=== PATIENT | female | born 1955 | race Caucasian/White ===

== ENCOUNTER 2018-01-18 07:50 | Inpatient (IN) | payer BC ==
--- NOTE | 2018-01-18 07:53 | ED.PDOC ---
History of Present Illness - General Chief Complaint: Cardiovascular Problem Stated Complaint: sob/chest apins Time Seen by Provider: 01/18/18 07:52 Source: patient Exam Limitations: no limitations - History of Present Illness Initial Comments: Romana Connors 62 y/o female with history of a .fib came to ER with SOB the last 3 days and had sharp pressure like pains on her chest since yesterday,no diaphoresis,no N/V.Stated had pacemaker placed in 2 years ago for her a.fib and also has CHF,Asthma,Lupus and RA.Mentioned about her moderately fast heart rate stated its not unusual for her. Has Md in [place], [place]. Timing/Duration: other - see hpi Severity: moderate Improving Factors: nothing Worsening Factors: nothing Associated Symptoms: other - see hpi Allergies/Adverse Reactions: Allergies Codeine Allergy (Verified 01/18/18 07:58) Vomitting Home Medications: Ambulatory Orders Albuterol Sulfate [Proair Hfa] 2 puff INH Q4H PRN 01/18/18 Bupropion HCl [Bupropion Hydrochloride] 75 mg PO DAILY 01/18/18 Diclofenac Sodium (Topical) [Diclofenac Sodium] 1 % TD TID PRN 01/18/18 Doxepin HCl 10 mg PO TID PRN 01/18/18 Esomeprazole Magnesium 20 mg PO DAILY 01/18/18 Fluticasone/Salmeterol 250/50 [Advair Diskus] 1 puff INH BID 01/18/18 Furosemide 20 mg PO DAILY PRN 01/18/18 Metoprolol Tartrate 50 mg PO BID 01/18/18 Pramipexole Dihydrochloride [Mirapex] 1.5 mg PO BID 01/18/18 busPIRone HCL [Buspar] 5 mg PO BID PRN 01/18/18 sulfaSALAzine TAB [Azulfidine] 500 mg PO BID 01/18/18 Review of Systems - Review of Systems Constitutional: States: no symptoms reported EENTM: States: no symptoms reported Respiratory: States: see HPI Cardiology: States: see HPI Gastrointestinal/Abdominal: States: no symptoms reported Genitourinary: States: no symptoms reported Musculoskeletal: States: no symptoms reported Skin: States: no symptoms reported Endocrine: States: no symptoms reported Hematologic/Lymphatic: States: no symptoms reported All other Systems: Reviewed and Negative, No Change from Baseline Past Medical History (General) - Patient Medical History Hx Asthma: Yes Hx Cardiac Disorders: Yes - a.fib Hx Congestive Heart Failure: Yes Hx Pacemaker: Yes Hx Hypertension: Yes Hx Other PMH: Yes - RA,LUPUS Surgical History: appendectomy, pacemaker, other - hysterectomy - Vaccination History Immunizations Up to Date: No - unknoewn - Social History Hx Tobacco Use: No Hx Alcohol Use: No Hx Substance Use: No Hx Depression: No Feels Threatened In Home Enviroment: No Hx Physical Abuse: No Hx Emotional Abuse: No - Activities of Daily Living Patient Lives Alone: No - sister Eating (Feeding) Ability: Independent Toileting Ability: Independent Family Medical History - Family History Mother Family History: No Known Living Status: Hx Cardiac Disease: Yes - a.fib-multiple family members Physical Exam - Physical Exam General Appearance: Alert, Comfortable, No apparent distress Eye Exam: bilateral normal Ears, Nose, Throat: hearing grossly normal, normal ENT inspection Neck: non-tender, full range of motion, supple, normal inspection Respiratory: chest non-tender, lungs clear, normal breath sounds Cardiovascular/Chest: normal peripheral pulses, regular rate, rhythm, no murmur Peripheral Pulses: radial,right: 2+, radial,left: 2+ Gastrointestinal/Abdominal: normal bowel sounds, non tender, soft, no organomegaly Back Exam: no CVA tenderness, no vertebral tenderness Extremity: no pedal edema, no calf tenderness Neurologic: no motor/sensory deficits, alert, oriented x 3 Progress - Progress Progress: 01/18/18 11:37 Vital Signs - 8 hr 01/18/18 01/18/18 01/18/18 07:59 08:38 09:31 Temperature 99.1 F Pulse Rate 112 H Pulse Rate [ 110 H 124 H Apical] Respiratory 26 H 22 20 Rate Blood Pressure 132/52 [Right Arm] O2 Sat by Pulse 93 L 89 L Oximetry 01/18/18 01/18/18 01/18/18 10:18 10:22 11:13 Temperature Pulse Rate Pulse Rate [ 122 H 93 H 105 H Apical] Respiratory 20 Rate Blood Pressure 124/74 96/80 103/64 [Right Arm] O2 Sat by Pulse 89 L 89 L 95 Oximetry - Results/Orders Results/Orders: 01/18/18 08:12 B-TYPE NATRIURETIC PEPTIDE/BNP Stat CARDIAC PANEL,ER Stat HEPATIC FUNCTION PANEL Stat Chest,1 View [RAD] Stat URINALYSIS Stat 01/18/18 09:16 SVN/Updraft Therapy .ONCE 01/18/18 09:30 EKG STAT 01/19/18 09:00 [facility] Daily Laboratory Results - last 24 hr 01/18/18 01/18/18 01/18/18 08:30 08:43 09:58 WBC 9.7 RBC 4.70 Hgb 13.5 Hct 40.4 MCV 86.0 MCH 28.8 MCHC 33.5 RDW 16.6 H Plt Count 238 MPV 8.8 Absolute Neuts (auto) 7.60 H Absolute Lymphs (auto) 1.20 Absolute Monos (auto) 0.80 Absolute Eos (auto) 0.00 Absolute Basos (auto) 0.10 Neutrophils % 78.4 H Lymphocytes % 11.8 L Monocytes % 8.6 Eosinophils % 0.4 L Basophils % 0.8 PT 13.4 H INR 1.160 PTT (SP) 34.3 Sodium 140 Potassium 3.3 L Chloride 105 Carbon Dioxide 25 Anion Gap 13.3 BUN 13 Creatinine 0.77 BUN/Creatinine Ratio 16.9 Random Glucose 145 H Serum Osmolality 282.1 Calcium 8.8 Magnesium 1.4 L Total Bilirubin 0.8 Direct Bilirubin 0.2 Indirect Bilirubin 0.6 AST 41 ALT 68 H Alkaline Phosphatase 66 Creatine Kinase 32 CK-MB (CK-2) 1.2 CK-MB (CK-2) % Not Reportable Troponin I < 0.02 < 0.02 B-Natriuretic Peptide 1200.0 H* Serum Total Protein 6.7 Albumin 3.4 Urine Color Yellow Urine Appearance Clear Urine pH 6.0 Ur Specific [place] 1.015 Urine Protein Negative Urine Glucose (UA) Negative Urine Ketones Negative Urine Blood Trace-intact H Urine Nitrite Negative Urine Bilirubin Negative Urine Urobilinogen 0.2 Ur Leukocyte Esterase Negative Urine RBC 0-1 Urine WBC 1-3 Ur Epithelial Cells 3-5 Urine Bacteria Rare - EKG/XRAY/CT EKG: Atrial, Fibrillation, nonspecific ST T wave Chg Comments: HR-112 XRAY: chest - interstitial densities more on the left ,mild cardiomegaly,/ radiologist Departure - Departure Clinical Impression: Chest tightness or pressure, Atrial fibrillation with controlled ventricular response CHF, acute on chronic Qualifiers: Congestive heart failure type: unspecified congestive heart failure type Qualified Code(s): I50.9 - Heart failure, unspecified Dyspnea Qualifiers: Dyspnea type: unspecified Qualified Code(s): R06.00 - Dyspnea, unspecified Time of Disposition: 11:39 Disposition: Admit Patient Condition: Fair Departure Forms: Patient Portal Self Enrollment Home Medications: Ambulatory Orders Albuterol Sulfate [Proair Hfa] 2 puff INH Q4H PRN 01/18/18 Bupropion HCl [Bupropion Hydrochloride] 75 mg PO DAILY 01/18/18 Diclofenac Sodium (Topical) [Diclofenac Sodium] 1 % TD TID PRN 01/18/18 Doxepin HCl 10 mg PO TID PRN 01/18/18 Esomeprazole Magnesium 20 mg PO DAILY 01/18/18 Fluticasone/Salmeterol 250/50 [Advair Diskus] 1 puff INH BID 01/18/18 Furosemide 20 mg PO DAILY PRN 01/18/18 Metoprolol Tartrate 50 mg PO BID 01/18/18 Pramipexole Dihydrochloride [Mirapex] 1.5 mg PO BID 01/18/18 busPIRone HCL [Buspar] 5 mg PO BID PRN 01/18/18 sulfaSALAzine TAB [Azulfidine] 500 mg PO BID 01/18/18 Decision To Admit - Decistion To Admit Decision to Admit Reason: Admit from ER Decision to Admit Date: 01/18/18 Decision to Admit Time: 11:40
[2018-01-18] MEDS ORDERED: NITROGLYCERIN 0.4 MG 25 EA TAB SL ONE (08:13)
[2018-01-18] MEDS ORDERED: BUMETANIDE 0.25 MG/ML VIAL IV ONE (08:13)
[2018-01-18] MEDS ORDERED: ONDANSETRON INJ 4 MG/2 ML VIAL IV ONE ×2 (08:27→08:28)
[2018-01-18] MEDS ORDERED: ONDANSETRON INJ 4 MG/2 ML VIAL ONE (08:27)
--- NOTE | 2018-01-18 08:57 | RAD ---
EXAM DESCRIPTION: Chest,1 View CLINICAL HISTORY: chest pressure, SOB COMPARISON: None. TECHNIQUE: AP portable taken at 842 hours, upright position. FINDINGS: Interstitial densities bilaterally and also in the right upper lobe. Minimal air trapping. Perihilar peribronchial wall cuffing. Mild cardiomegaly but pulmonary vascularity is not increased. Pacemaker power pack left chest and pacing leads in the right atrium and right ventricle. IMPRESSION: Interstitial densities could represent bronchitis or and/or pulmonary edema but asymmetric involvement of the upper lobes more on the left. Pulmonary vascularity is not increased. No there is mild cardiomegaly. Inflammatory or infectious etiology more likely than pulmonary edema. Electronically signed by: Joshua Chino MD 01/18/2018 8:56 AM CDT
[2018-01-18] MEDS ORDERED: MAGNESIUM SULFATE PREMIX 2GM 2 GM in PREMIX BAG 1 BAG IVPB ONE (09:13)
[2018-01-18] MEDS ORDERED: POTASSIUM CHLORIDE 20 MEQ TAB PO ONE ×2 (09:13→12:57)
[2018-01-18] MEDS ORDERED: methylPREDNISolone SODIUM SUC 125 MG/2 ML VIAL IV ONE (09:15)
[2018-01-18] MEDS ORDERED: IPRATROPIUM/ALBUTEROL 3 ML VIAL NEB ONE (09:16)
[2018-01-18] MEDS ORDERED: MAGNESIUM SULFATE PREMIX 2GM 50 ML IVPB ONE (10:00)
--- NOTE | 2018-01-18 11:52 | HP ---
SUPERVISING PHYSICIAN: William Valdez MD CHIEF COMPLAINT: Shortness of breath. HISTORY OF PRESENT ILLNESS: This is a 62-year-old female patient with a history of atrial fibrillation who came into the Emergency Room with shortness of breath that started last Wednesday. She is from [place] and was visiting family here in [place]. She had a sharp pressure-like pain in her chest since yesterday. There is no diaphoresis, no nausea and vomiting. She has a history of pacemaker insertion for atrial fibrillation about 2 to 3 years ago and was diagnosed with congestive heart failure approximately one month ago and was in ICU in [place], [place]. She also has a history of asthma, chronic obstructive pulmonary disease, rheumatoid arthritis. When she presented to the Emergency Room, she had a heart rate in the low 100s. It did go as high as 124. Her workup included lab with a sodium 140, potassium 3.3, chloride 105, carbon dioxide 25, BUN 13, creatinine 0.77, glucose 145, magnesium 1.4. ALT 68. Cardiac enzymes were negative. BNP was 1200. Urinalysis was basically within normal limits with the exception of a trace of urine blood. Chest x-ray showed interstitial densities that could represent bronchitis and/or pulmonary edema with asymmetric involvement of the upper lobes, more on the left. She was given some magnesium and some Diltiazem. Her heart rate came down to around 100. Breathing treatments were also administered. She was given some Solu-Medrol IV and some nitroglycerin. I was called for admission for exacerbation of congestive heart failure. PAST MEDICAL HISTORY: 1. Lupus. 2. Chronic obstructive pulmonary disease. 3. Asthma. 4. Depression and anxiety. 5. Coronary artery disease. 6. Congestive heart failure of unknown etiology, diagnosed approximately 3 to 4 weeks ago. 7. Hypertension. 8. Restless leg syndrome. 9. Remote history of migraines. 10. Rheumatoid arthritis. 11. Atrial fibrillation with pacemaker insertion. PAST SURGICAL HISTORY: 1. Hysterectomy. 2. x2. 3. Pacemaker insertion. 4. Appendectomy. OUTPATIENT MEDICATIONS: 1. Albuterol. 2. Diclofenac topical. 3. Nexium. 4. Furosemide. 5. Bupropion. 6. BuSpar. 7. Doxepin. 8. Advair 250/50. 9. Metoprolol tartrate. 10. Mirapex. 11. Azulfidine. ALLERGIES: No known drug allergies except codeine does cause some nausea. SOCIAL HISTORY: She lives in [place], [place], which is outside [place]. She has two children. She is retired. She has a 40 pack year history of smoking, but she quit approximately 4 months ago. She denies any ETOH or illicit drug use. REVIEW OF SYSTEMS: GENERAL: Negative for fever, fatigue or malaise. HEENT: Negative for sinus symptoms, ear pain, vision changes or sore throat. RESPIRATORY: Positive for shortness of breath with some coughing and wheezing. CARDIAC: Positive for chest pain and history of congestive heart failure and palpitations. GASTROINTESTINAL: Negative for nausea, vomiting, diarrhea, constipation. GENITOURINARY: Negative for hematuria, dysuria or polyuria. MUSCULOSKELETAL: Negative for arthralgias, myalgias or back pain. SKIN: Negative for lesions or rashes. HEMATOLOGIC: Negative for bruising or abnormal bleeding. PHYSICAL EXAMINATION: VITAL SIGNS: Heart rate 94. Blood pressure 92/62. Respiratory rate 24. O2 saturation 89 on room air. She comes up to 91% on 2 liters nasal cannula. GENERAL: This is a this a 62-year-old female patient who is lying in her hospital bed. She is in no acute distress. HEENT: Normocephalic, atraumatic. Pupils are equal and reactive. Oropharynx is clear. NECK: Supple without mass. No discernible jugular venous distention. RESPIRATORY: Essentially clear to auscultation bilaterally but there are a few scattered crackles in the bases. CHEST: There is equal rise and fall of the chest with inspiration and expiration. She is slightly tachypneic. CARDIOVASCULAR: Regular rate and rhythm. At times, she is slightly tachycardic. EXTREMITIES: +1 pedal edema bilaterally with bilateral palpable pulses at +2. There is no cyanosis or clubbing. NEUROLOGIC: Awake, alert and oriented times three. Cranial nerves II-XII are grossly intact. LABORATORY: Labs and films are as per history of present illness. IMPRESSION: 1. Exacerbation of congestive heart failure of unknown etiology. The patient has recently been hospitalized for congestive heart failure as a new diagnosis. She is on a beta clifford, but has not been taking her EB inhibitor. 2. Exacerbation of chronic obstructive pulmonary disease. 3. Electrolyte imbalance include hypokalemia and hypomagnesemia. 4. Tachycardia on admission with a history of atrial fibrillation and pacemaker insertion. 5. Hypertension. 6. Restless leg syndrome. 7. Depression and anxiety. 8. Lupus. PLAN: We will admit the patient to the hospital. I have initiated congestive heart failure guidelines. She will be restarted on a very low dose of lisinopril and continue on her metoprolol. I have also given her some IV Lasix. We will monitor her labs in the morning. I have requested her echocardiogram from [facility] in [place]. She will also have breathing treatments. I will also do serial cardiac enzymes. She will have a proton pump inhibitor for ulcer prophylaxis, Lovenox for DVT prophylaxis. Mostly likely, she will need two or three days in the hospital with adjustment of her medication and close followup with Dr. Bunn, her primary care physician in [place]. We will monitor the patient closely and follow as needed. Dr. Valdez is the collaborating physician and available for consultation. #[id number] [facility]
[2018-01-18] MEDS ORDERED: NITROGLYCERIN 0.4 MG 25 EA TAB SL PRN (12:41)
[2018-01-18] MEDS ORDERED: ONDANSETRON INJ 4 MG/2 ML VIAL IV PRN (12:41)
[2018-01-18] MEDS ORDERED: DOXEPIN HCL 10 MG PO PRN (13:14)
[2018-01-18] MEDS ORDERED: POTASSIUM CHLORIDE 20 MEQ TAB ONE (15:52)
[2018-01-18] MEDS: methylPREDNISolone SODIUM SUC 40 MG/ML VIAL IV SCH ×2 (16:16→21:57)
[2018-01-18] MEDS: IV SET AND CAP CHANGE INJ INJ SCH (16:18)
[2018-01-18] MEDS: SODIUM CHLORIDE 0.9% (FLUSH) 10 ML SYG IV SCH ×2 (16:19→20:45)
[2018-01-18] MEDS: ALBUTEROL SULFATE 2.5 MG/3 ML VIAL NEB PRN (16:50)
[2018-01-18] MEDS ORDERED: FUROSEMIDE 40 MG TAB PO SCH (17:00)
[2018-01-18] MEDS: ACETAMINOPHEN 325 MG TAB PO PRN (19:38)
[2018-01-18] MEDS: ALBUTEROL SULFATE 2.5 MG/3 ML VIAL NEB SCH (19:54)
[2018-01-18] MEDS ORDERED: PANTOPRAZOLE SODIUM IV 40 MG VIAL ONE (19:59)
[2018-01-18] MEDS: FLUTICASONE/SALMETEROL 250/50 14 PUFF/17 GM INH INH SCH (20:09)
[2018-01-18] MEDS: PRAMIPEXOLE 0.25 MG TAB PO SCH (20:43)
[2018-01-18] MEDS: sulfaSALAzine TAB 500 MG TAB PO SCH (20:44)
[2018-01-18] MEDS: busPIRone HCL 5 MG TAB PO SCH (20:44)
[2018-01-18] MEDS: METOPROLOL TARTRATE 50 MG TAB PO SCH (20:44)
[2018-01-18] MEDS ORDERED: ENOXAPARIN SODIUM 40 MG/0.4 ML SYG SUBCU SCH (21:00)
[2018-01-18] MEDS ORDERED: METOPROLOL TARTRATE 25 MG TAB PO ONE (21:02)
[2018-01-18] MEDS: ALPRAZolam 0.25 MG TAB PO PRN (22:20)
[2018-01-19] MEDS: ALBUTEROL SULFATE 2.5 MG/3 ML VIAL NEB SCH ×3 (00:29→07:55)
[2018-01-19] MEDS: SODIUM CHLORIDE 0.9% (FLUSH) 10 ML SYG IV PRN ×2 (05:50→14:06)
[2018-01-19] MEDS: methylPREDNISolone SODIUM SUC 40 MG/ML VIAL IV SCH ×3 (05:50→21:41)
[2018-01-19] MEDS ORDERED: PANTOPRAZOLE SODIUM IV 40 MG VIAL IV SCH (06:30)
--- NOTE | 2018-01-19 07:31 | RAD ---
2 view chest INDICATION: CHF COMPARISON: January 18 IMPRESSION: Dual-lead cardiac pacemaker with lead tips over the right atrium and ventricle. Heart size upper limits normal. Minimal interstitial thickening/edema in the mid and lower lungs. No major cephalization of flow. No alveolar edema. No large pleural effusion or pneumothorax. Slight improvement overall. lateral film shows mild wedging of a lower thoracic vertebral body age-indeterminate. Electronically signed by: Jaleel Mace MD 01/19/2018 7:29 AM CDT
[2018-01-19] MEDS: FLUTICASONE/SALMETEROL 250/50 14 PUFF/17 GM INH INH SCH ×2 (07:55→20:01)
[2018-01-19] MEDS ORDERED: METOPROLOL TARTRATE 50 MG TAB ONE ×2 (08:37→20:42)
[2018-01-19] MEDS: POTASSIUM CHLORIDE 20 MEQ TAB PO SCH ×2 (09:56→10:05)
[2018-01-19] MEDS: FUROSEMIDE INJ 20 MG/2 ML VIAL IV SCH ×2 (09:57→16:17)
[2018-01-19] MEDS: METOPROLOL TARTRATE 50 MG TAB PO SCH ×2 (09:57→20:45)
[2018-01-19] MEDS: sulfaSALAzine TAB 500 MG TAB PO SCH ×2 (09:57→20:44)
[2018-01-19] MEDS: BUPROPION HCL 75 MG PO SCH (09:57)
[2018-01-19] MEDS: busPIRone HCL 5 MG TAB PO SCH ×2 (09:57→20:45)
[2018-01-19] MEDS: SODIUM CHLORIDE 0.9% (FLUSH) 10 ML SYG IV SCH ×2 (09:58→20:50)
[2018-01-19] MEDS: PRAMIPEXOLE 0.25 MG TAB PO SCH ×2 (09:58→20:45)
[2018-01-19] MEDS: LISINOPRIL 5 MG TAB PO SCH (10:00)
[2018-01-19] MEDS ORDERED: SODIUM CHL 0.9% 50ML MIN-BAG+ 50 ML IVPB ONE ×2 (10:21→21:56)
[2018-01-19] MEDS ORDERED: cefTRIAXone SODIUM 1 GM VIAL ONE ×2 (10:21→21:56)
[2018-01-19] MEDS: AZITHROMYCIN 250 MG TAB PO SCH (10:22)
[2018-01-19] MEDS: cefTRIAXone SODIUM 1 GM in SODIUM CHL 0.9% 50ML MIN-BAG+ 50 ML IVPB SCH ×2 (10:22→22:46)
--- NOTE | 2018-01-19 11:58 | CT ---
EXAM DESCRIPTION: CTA Chest CLINICAL HISTORY: 62 years Female, SOB; CP ; Tachy COMPARISON: Radiographs of the chest performed on the same day. TECHNIQUE: Contiguous thin section axial images through the chest were obtained after the administration of intravenous contrast. Sagittal and coronal reconstructions were reviewed. MIP reconstructions were performed as well. FINDINGS: The visualized thyroid gland and supraclavicular region appear normal. No evidence of abnormally enlarged mediastinal, hilar or axillary lymphadenopathy. Trachea is midline and the central tracheobronchial tree is patent. Severe emphysematous changes are identified in the bilateral upper lobes. Airspace opacities in the bilateral lower lobes could represent atelectasis probably from poor inspiratory effort. No nodules or masses are visualized. No evidence of pleural effusions. The heart is enlarged in size especially the left atrium and left ventricle. The visualized aorta is nonaneurysmal with no significant atherosclerosis. The superior vena cava is normal in size and caliber.No significant coronary artery atherosclerosis. No evidence of acute or chronic pulmonary embolism. The esophagus appears normal throughout its visualized length. Incidental note is made of gallstones. There is mild surrounding inflammatory stranding, most likely consistent with acute cholecystitis. Small hiatal hernia is noted. No other abnormality is noted in the imaged upper abdomen. The visualized bones appear grossly unremarkable. IMPRESSION: 1. No evidence of acute or chronic pulmonary embolism. 2. Cholelithiasis with inflammatory stranding surrounding the gallbladder most likely consistent with acute cholecystitis. Findings were discussed with nurse practitioner Mr. Chou on 01/19/2018 at 12:00 PM. This exam was performed according to our departmental dose-optimization program, which includes automated exposure control, adjustment of the mA and/or kV according to patient size and/or use of iterative reconstruction technique. Electronically signed by: Shari Srivastava MD 01/19/2018 11:57 AM CDT
[2018-01-19] MEDS: ALBUTEROL SULFATE 2.5 MG/3 ML VIAL NEB PRN (12:00)
[2018-01-19] MEDS: APIXABAN 2.5 MG TAB PO SCH ×2 (12:25→20:45)
[2018-01-19] MEDS: NON-FORMULARY MEDICATION 1 EA MIS (Hydroxychloroquine Sulfate [Plaquenil] 200 MG) PO SCH ×2 (12:26→20:49)
[2018-01-19] MEDS: FLUoxetine HCL 20 MG CAP PO SCH (12:26)
[2018-01-19] MEDS: ESTRADIOL TAB 1 MG PO SCH (12:26)
[2018-01-19] MEDS ORDERED: SODIUM CHLORIDE 0.9% 500ML 500 ML IVS SCH (14:00)
--- NOTE | 2018-01-19 15:28 | US ---
EXAM DESCRIPTION: Abdomen,Limited CLINICAL HISTORY: Cholecystitis on CTA of chest COMPARISON: None Available. TECHNIQUE: Right upper quadrant ultrasound FINDINGS: Pancreas: Visualized portions of the pancreas are unremarkable. Bowel gas obscures some areas. Aorta/inferior vena cava: No aortic aneurysm. Normal inferior vena cava. Liver: The liver is homogeneous in texture with normal echogenicity of the hepatic parenchyma. No focal liver lesion or intrahepatic bile duct dilatation. No liver surface irregularity. Normal appearance of the portal vein and hepatic veins. Gallbladder: Positive shadowing stone in the gallbladder is seen measuring 9 mm. The gallbladder is not distended although the wall thickness is prominent. Gallbladder wall thickness measures 3.4 mm. This may be postprandial state. Sonographic Sargent sign was reported as negative. Common bile duct: Normal caliber measuring 6.5 mm. Right kidney: Renal length is 9.8 cm. Normal cortical echogenicity. Cortical thickness is normal. No hydronephrosis is seen. No renal mass or shadowing calculus. IMPRESSION: Gallstone in contracted gallbladder. See above. Electronically signed by: Nakul Patel MD 01/19/2018 3:26 PM CDT
[2018-01-19] MEDS: LEVALBUTEROL NEBS 1.25 MG/3 ML VIAL NEB SCH (16:35)
--- NOTE | 2018-01-19 17:11 | CONS ---
DATE OF CONSULTATION: 01/19/18 HISTORY OF PRESENT ILLNESS: The patient is a 62 year-old female who was admitted through the Emergency Room for what was thought to be an exacerbation of congestive heart failure. She was noted to have some abdominal pain. A CTA of the chest to rule out pulmonary embolism due to the patient's being off her Eliquis for atrial fibrillation was suspicious for acute cholecystitis and an ultrasound of the gallbladder revealed thickened gallbladder wall and gallstones. I have been asked to help with treatment and further workup. PAST MEDICAL HISTORY: 1. Lupus. 2. Chronic obstructive pulmonary disease. 3. Asthma. 4. Depression. 5. Coronary artery disease. 6. Congestive heart failure. 7. Hypertension. 8. Restless leg. 9. Migraines. 10. Rheumatoid arthritis. 11. Atrial fibrillation. 12. Status post pacemaker placement. PAST SURGICAL HISTORY: 1. Hysterectomy. 2. section. 3. Appendectomy. CURRENT MEDICATIONS: 1. Albuterol. 2. Nexium. 3. Furosemide. 4. Bupropion. 5. BuSpar. 6. Doxepin. 7. Advair. 8. Metoprolol. 9. Mirapex. 10. Azulfidine. 11. Eliquis. ALLERGIES: NO KNOWN DRUG ALLERGIES. FAMILY HISTORY: Noncontributory. SOCIAL HISTORY: The patient is retired. Lives in [place], visiting family here. No history of alcohol or drug use. She quit after a 40 pack year history of tobacco abuse, quit several months ago. REVIEW OF SYSTEMS: There is no history of hepatitis or jaundice. No history of nausea, vomiting, change in her bowel habits, blood per rectum or melenic stools. PHYSICAL EXAMINATION: VITAL SIGNS: Currently afebrile and normotensive. GENERAL: The patient is awake, alert and cooperative. She is in no acute distress. HEENT: Reveals the sclera to be nonicteric. Mucous membranes are moist. CHEST: With equal breath sounds bilaterally. HEART: Regular rhythm. ABDOMEN: Soft. There is tenderness in the epigastrium and right upper quadrant without guarding or mass. PELVIC AND RECTAL: Examination are deferred. EXTREMITIES: Without clubbing, cyanosis or edema. LABORATORY: White count 8,400 this morning with 88% neutrophils, 228,000 platelets. Hemoglobin 12. Chemistries: Liver functions were within normal limits on admission except ALT was slightly elevated at 68, potassium 3.3, creatinine 0.77. Urine has 1 to 3 white cells, negative leukocyte esterase, rare bacteria. Clear chest x-ray. CTA of the chest and abdominal ultrasound results are discussed. IMPRESSION: 1. Right upper quadrant abdominal pain. 2. Cholelithiasis rule out cholecystitis. 3. Congestive heart failure. 4. Atrial fibrillation. 5. Lupus. 6. Pacemaker. PLAN: Continue with bowel rest except for ice chips. Recheck lab in the morning. Continue IV antibiotics. #[id number] [facility]
[2018-01-19] MEDS: KCL 20MEQ/D5 1/2NS 1,000 ML IVS PRN (17:56)
[2018-01-19] MEDS: ACETAMINOPHEN 325 MG TAB PO PRN (20:46)
[2018-01-19] MEDS: TEMAZEPAM 15 MG CAP PO PRN (21:42)
[2018-01-20] MEDS: LEVALBUTEROL NEBS 1.25 MG/3 ML VIAL NEB SCH ×4 (00:09→23:56)
[2018-01-20] MEDS: KCL 20MEQ/D5 1/2NS 1,000 ML IVS PRN (06:16)
[2018-01-20] MEDS: methylPREDNISolone SODIUM SUC 40 MG/ML VIAL IV SCH (06:17)
[2018-01-20] MEDS: PANTOPRAZOLE SODIUM TAB 40 MG PO SCH (06:18)
--- NOTE | 2018-01-20 07:26 | RAD ---
EXAM DESCRIPTION: Chest,2 Views CLINICAL HISTORY: COPD; CHF exacerbation COMPARISON: January 19, 2018 TECHNIQUE: PA/lateral FINDINGS: Follow-up examination of the chest shows patchy stranding with mixed interstitial and patchy alveolar changes in the left midlung field and the right mid to lower lung field medially and infrahilar distribution. Scarring or basilar bronchopneumonia is suspected. Heart size is upper normal with calcified tortuous aorta and stable position of permanent pacer with sequential leads. No significant pleural effusions noted. Very little change in the appearance of the chest. IMPRESSION: Persistent stranding in both mid and lower lung dawson with patchy mixed interstitial and alveolar changes suggesting bronchopneumonia. Upper normal heart and vascularity. Electronically signed by: William Arreola MD 01/20/2018 7:24 AM CDT
[2018-01-20] MEDS: FLUTICASONE/SALMETEROL 250/50 14 PUFF/17 GM INH INH SCH ×2 (08:05→20:20)
[2018-01-20] MEDS: BUPROPION HCL 75 MG PO SCH (09:31)
[2018-01-20] MEDS: NON-FORMULARY MEDICATION 1 EA MIS (Hydroxychloroquine Sulfate [Plaquenil] 200 MG) PO SCH ×2 (09:33→21:03)
[2018-01-20] MEDS ORDERED: metroNIDAZOLE IV PREMIX 500MG 100 ML IVPB ONE ×3 (09:35→20:44)
[2018-01-20] MEDS ORDERED: METOPROLOL TARTRATE 50 MG TAB ONE ×2 (09:35→21:00)
[2018-01-20] MEDS: metroNIDAZOLE IV PREMIX 500MG 500 MG in PREMIX BAG 1 BAG IVPB SCH ×2 (09:43→17:50)
[2018-01-20] MEDS: busPIRone HCL 5 MG TAB PO SCH ×2 (09:45→20:49)
[2018-01-20] MEDS: ESTRADIOL TAB 1 MG PO SCH (09:45)
[2018-01-20] MEDS: FLUoxetine HCL 20 MG CAP PO SCH (09:45)
[2018-01-20] MEDS: sulfaSALAzine TAB 500 MG TAB PO SCH ×2 (09:45→20:48)
[2018-01-20] MEDS: APIXABAN 2.5 MG TAB PO SCH (09:45)
[2018-01-20] MEDS: LISINOPRIL 5 MG TAB PO SCH (09:46)
[2018-01-20] MEDS: METOPROLOL TARTRATE 50 MG TAB PO SCH ×2 (09:46→21:03)
[2018-01-20] MEDS ORDERED: FUROSEMIDE INJ 20 MG/2 ML VIAL ONE (09:51)
[2018-01-20] MEDS: PRAMIPEXOLE 0.25 MG TAB PO SCH ×2 (09:54→20:49)
[2018-01-20] MEDS: SODIUM CHLORIDE 0.9% (FLUSH) 10 ML SYG IV SCH ×2 (09:55→21:05)
[2018-01-20] MEDS: FUROSEMIDE INJ 20 MG/2 ML VIAL IV SCH (09:57)
--- NOTE | 2018-01-20 10:22 | PN ---
SUPERVISING PHYSICIAN: William Valdez MD DATE: 01/19/18 SUBJECTIVE: The patient is resting comfortably. She notes she is not having any significant discomfort although she had some mild discomfort she notes on palpation at times to her right upper quadrant. She has had no nausea, vomiting or diarrhea. She does remain afebrile. OBJECTIVE: VITAL SIGNS: Temperature 97.2. Pulse 108. Blood pressure 106/68. Respirations 16. Saturation 95% on room air. I&Os show positive balance of 280 with 1080 in, 800 out. Weight 79.4 kg. CHEST: Lungs clear to auscultation bilaterally. HEART: Slightly irregular rate and rhythm. ABDOMEN: Obese, but soft with some tenderness on deep palpation of the right upper quadrant. No rebound tenderness or guarding. EXTREMITIES: No cyanosis, clubbing or edema. NEUROLOGIC: Alert and oriented times three. LABORATORY: White count 8,400, hemoglobin 12.9, hematocrit 38.1, platelet count 228,000. Differential does show a left shift. Chemistries show magnesium 1.8, hemoglobin A1c 6.7. Troponin x4 sets were less than 0.02. EKG shows atrial fibrillation with a controlled rate. RADIOLOGY: Chest x-ray this morning per radiologic interpretation showed no alveolar edema, no large pleural effusion, pneumothorax. There is slight improvement overall with lateral films showing mild wedge of lower thoracic vertebral body, age indeterminate. There is mild interstitial thickening and edema in the mid and lower lungs. This was followed up with CT of the chest and thorax and per radiologic interpretation showed no evidence of acute or chronic pulmonary embolism. There was note of cholelithiasis with inflammatory stranding surrounding the gallbladder most likely consistent with acute cholecystitis. This was followed up with abdominal ultrasound focused on the gallbladder with per radiologic interpretation noting gallstones and contracted gallbladder measuring 9 mm with gallbladder not distended although the wall thickness was prominent and gallbladder wall thickness was measuring 3.4 mm. Sonographic Sargent's sign was reported as negative. Common bile duct was of normal caliber measuring 6.5 mm. ASSESSMENT: 1. Exacerbation of congestive heart failure of uncertain etiology, likely a diastolic/ systolic combination with diagnosis being new with the patient on a beta clifford and current echocardiogram showing an ejection fraction of 30% with the patient not previously on an EB inhibitor. 2. Right upper abdominal pain with findings on CTA of the chest and ultrasound of the abdomen consistent with cholelithiasis with concerns for cholecystitis. 3. Exacerbation of chronic obstructive pulmonary disease with acute bronchitis. 4. Electrolyte imbalance including hypokalemia and hypomagnesemia, improving with replacement. 5. History of atrial fibrillation with a controlled ventricular rate and pacemaker insertion with the patient previously on Eliquis and a beta clifford for rate control. 6. Hypertension, stable. 7. Restless leg syndrome. 8. Depression and anxiety. 9. Lupus. PLAN: Given the patient has an exacerbation of chronic obstructive pulmonary disease and a cough, we will go ahead and start her on treatment with antibiotics since she does have a left shift to include azithromycin and Rocephin. I did a consultation with Dr. Chow who has seen the patient is currently working the patient up for questionable acute cholecystitis, although given her past medical history and current congestive heart failure exacerbation along with her atrial fibrillation and poor medical compliance, she is not a great candidate for surgery at this level of hospital. We will make her NPO tonight, repeat labs in the morning and will address those findings with Dr. Chow and discuss his plan of care at that point which will more likely be to discharge the patient to continue with management in the outpatient setting in [place] hometown with her primary care physician. She will continue on lisinopril. I have restarted her beta clifford with metoprolol which she has currently not been taking consistently as well as she notes she has not taken her Eliquis for well over 4 [address] a [address] of the chest given those findings and there were no signs of pulmonary embolism and no consolidation processes noted, but there was a finding of cholelithiasis with suggestion of cholecystitis. She will remain on antibiotics since talking with Dr. Chow as well as she remains on steroids of Solu-Medrol 40 mg b.i.d. and aggressive pulmonary hygiene along with q.i.d. breathing treatments actually changing her to Xopenex nebulizers to prevent any exacerbation of atrial fibrillation with rapid ventricular response. We will start her on some IV fluids. At this point, I think she is a little bit dry intravascularly and we will do D5 half normal saline with 20 of potassium at 80 an hour as she remains NPO. She can have ice chips. We will hold her Lasix and reassess labs in the morning. Until clinically stable and able to be discharged to continue with outpatient management, we will continue to monitor the patient closely and treat appropriately. #[id number] [facility]
[2018-01-20] MEDS ORDERED: cefTRIAXone SODIUM 1 GM VIAL ONE ×2 (10:45→20:44)
[2018-01-20] MEDS ORDERED: SODIUM CHL 0.9% 50ML MIN-BAG+ 50 ML IVPB ONE ×2 (10:45→20:43)
[2018-01-20] MEDS: cefTRIAXone SODIUM 1 GM in SODIUM CHL 0.9% 50ML MIN-BAG+ 50 ML IVPB SCH ×2 (10:51→22:40)
[2018-01-20] MEDS: AZITHROMYCIN 250 MG TAB PO SCH (10:51)
--- NOTE | 2018-01-20 12:03 | PCM.CORE ---
Physician DVT/VTE - Prophylaxis Currently: Patient already on anticoagulation therapy - derek - Nurse DVT Assessment & Total Each Risk Factor Represents 3 Points: Medical PT with Hx of IL, CHF, Severe infection/sepsis Each Risk Factor Represents 2 Points: Age 60-74 Each Risk Factor is 1 Point: Serious Lung disease (pnemonia <1month, COPD, emphysema,etc) DVT Assessment Score: 6 - 5 or more Very High Risk Treatments: Early Ambulation *, Sequential Compression Device Pharmacological: Enoxaparin 40mg SQ Daily
[2018-01-20] MEDS: methylPREDNISolone SODIUM SUC 125 MG/2 ML VIAL IV SCH ×3 (12:04→18:00)
[2018-01-20] MEDS: ALBUTEROL SULFATE 2.5 MG/3 ML VIAL NEB PRN (12:49)
[2018-01-20] MEDS ORDERED: METOPROLOL TARTRATE 25 MG TAB ONE (20:43)
[2018-01-20] MEDS: ACETAMINOPHEN 325 MG TAB PO PRN (21:02)
[2018-01-20] MEDS: TEMAZEPAM 15 MG CAP PO PRN (21:02)
--- NOTE | 2018-01-20 22:40 | PN ---
DATE: 01/20/18 SUPERVISING PHYSICIAN: William Valdez M.D. SUBJECTIVE: The patient notes that she has had a little bit increase in shortness of breath this morning. She denies any chest pains. She still continues to have some mild right upper quadrant pain more so on palpation. She has had no nausea or vomiting or diarrhea. She has remained afebrile. OBJECTIVE: VITAL SIGNS: Temperature 97.8, pulse 101, blood pressure 102/65, respirations 20, satting 93% on 2.5 liters nasal cannula at rest. I's and O's show a positive balance of 237 with 21.87 in, 1950 out. Weight is 79.5 kg. CHEST: Lung sounds are diminished throughout with just very faint inspiratory and expiratory wheezing. No rales or rhonchi are noted. HEART: Slightly irregular rate and rhythm but controlled ventricular rate. ABDOMEN: Obese, soft with continued tenderness in the right upper quadrant. No rebound tenderness. EXTREMITIES: No clubbing, cyanosis or edema. NEUROLOGIC: She is alert and oriented times three. LABORATORY: White count has gone up to 12,100, however she has continued to be on corticosteroid regimen. Hemoglobin and hematocrit are stable at 13.3 and 40.6 with platelet count 256,000. Differential does continue to show a left shift. Chemistries show normal electrolytes with potassium 4.9, BUN 23, creatinine 0.8, calcium 8.6, magnesium was 1.8 yesterday. Liver functions all show to be within normal limits. MICROBIOLOGY: No microbiology specimens are pending. RADIOLOGY: Chest x-ray this morning per radiology interpretation shows persistent stranding in both mid and lower lung dawson with patchy mixed interstitial and alveolar changes suggesting a bronchial pneumonia with upper normal heart vasculature. ASSESSMENT: 1. Exacerbation of congestive heart failure of uncertain etiology, likely a diastolic/ systolic combination with diagnosis being new to the patient on a beta clifford with current echocardiogram on last hospitalization within the last month showing an ejection fraction of 30% with the patient not previously on an EB inhibitor but currently started on one. 2. Bronchial pneumonia community acquired. 3. Exacerbation of chronic obstructive pulmonary disease with chronic bronchitis with concerns now for bronchial pneumonia as noted on recent radiographic studies with the patient remaining on azithromycin and Rocephin and bronchodilator therapy as well as corticosteroid administration. 4. Right upper abdominal pain with findings on CTA of the chest and ultrasound of the abdomen consistent with cholelithiasis while ruling out PE that was negative with concerns for acute cholecystitis with the patient currently on antibiotics with the addition of Levaquin and being followed by Dr. Chow. 5. Electrolyte imbalance including hypokalemia and hypomagnesemia, improving with replacement. 6. History of atrial fibrillation with a controlled ventricular rate and pacemaker insertion with the patient previously on Eliquis and a beta clifford for rate control. 7. Hypertension, stable. 8. Restless leg syndrome. 9. Depression and anxiety. 10. Lupus. PLAN: Given the patient's multiple illnesses and co-morbidities now include exacerbation of chronic obstructive pulmonary disease with pneumonia, atrial fibrillation with exacerbation of congestive heart failure and concern for acute cholecystitis, the patient will certainly benefit from an additional 24 to 48 hours or greater hospitalization and close following by Dr. Chow and concerns for the acute cholecystitis. Hopefully the patient will stabilize in regards to the cholecystitis and clinically improve with the treatment of pneumonia and will be able to discharge home to continue with outpatient management in the next 1 to 2 days. She continues to have shortness of breath and given that she has had a little bit of increase today, I will change her corticosteroid regimen to 80 mg once and initial followup with 60 mg every 6 hours for 3 dose, and reevaluate in the morning. She does remain on bronchodilator therapy with Xopenex which she is tolerating well. She has been resumed on Lovenox with questionable need for Eliquis which now, I think, is on her day 3 of being off Eliquis, therefore we need to address this tomorrow with Dr. Chow to see if we can restart the Eliquis. If not, we need to change her Lovenox to 1 mg per kg. We have increased her diet to clear liquids. She remains on IV fluids until she has adequate p.o. intake and at that point we will saline lock her. Will plan to reevaluate with a chest x-ray in the morning and a repeat CBC. Will hold off on chemistries as her electrolytes have been shown to be stable as well as her renal function. Again, will hopefully be able to discharge either Wednesday or Wednesday based off clinical response and Dr. Chow's recommendations. Until that point, will continue to monitor and treat appropriately. #[id number] [facility]
[2018-01-21] MEDS: methylPREDNISolone SODIUM SUC 125 MG/2 ML VIAL IV SCH ×2 (00:15→06:20)
[2018-01-21] MEDS: metroNIDAZOLE IV PREMIX 500MG 500 MG in PREMIX BAG 1 BAG IVPB SCH ×3 (01:17→17:37)
--- NOTE | 2018-01-21 06:15 | RAD ---
EXAM DESCRIPTION: 2 views of the chest CLINICAL HISTORY: pneumonia COMPARISON: 01/20/2018 FINDINGS: Frontal and lateral views of the chest. Cardia mediastinal silhouette is stable. Left-sided pacemaker. Patchy bilateral interstitial opacities with improved aeration of the left lung from the comparison study. No pneumothorax. No large effusion. Osseous structures are stable. Upper abdominal soft tissues are unremarkable. IMPRESSION: 1. Improved aeration the left midlung with persistent bilateral interstitial opacities. Electronically signed by: Butch Flores 01/21/2018 6:13 AM CDT
[2018-01-21] MEDS: PANTOPRAZOLE SODIUM TAB 40 MG PO SCH (06:43)
[2018-01-21] MEDS ORDERED: METOPROLOL TARTRATE 50 MG TAB ONE ×2 (07:50→19:32)
[2018-01-21] MEDS ORDERED: metroNIDAZOLE IV PREMIX 500MG 100 ML IVPB ONE ×2 (07:51→17:33)
[2018-01-21] MEDS: LISINOPRIL 5 MG TAB PO SCH (09:13)
[2018-01-21] MEDS: busPIRone HCL 5 MG TAB PO SCH ×2 (09:14→20:53)
[2018-01-21] MEDS: BUPROPION HCL 75 MG PO SCH (09:14)
[2018-01-21] MEDS: PRAMIPEXOLE 0.25 MG TAB PO SCH ×2 (09:14→20:52)
[2018-01-21] MEDS: ESTRADIOL TAB 1 MG PO SCH (09:15)
[2018-01-21] MEDS: METOPROLOL TARTRATE 50 MG TAB PO SCH ×2 (09:15→20:53)
[2018-01-21] MEDS: NON-FORMULARY MEDICATION 1 EA MIS (Hydroxychloroquine Sulfate [Plaquenil] 200 MG) PO SCH ×2 (09:16→21:24)
[2018-01-21] MEDS: sulfaSALAzine TAB 500 MG TAB PO SCH ×2 (09:16→20:53)
[2018-01-21] MEDS: FLUoxetine HCL 20 MG CAP PO SCH (09:17)
[2018-01-21] MEDS: SODIUM CHLORIDE 0.9% (FLUSH) 10 ML SYG IV SCH ×2 (09:17→20:54)
[2018-01-21] MEDS: LEVALBUTEROL NEBS 1.25 MG/3 ML VIAL NEB SCH ×3 (09:25→23:33)
[2018-01-21] MEDS: FLUTICASONE/SALMETEROL 250/50 14 PUFF/17 GM INH INH SCH ×2 (09:25→19:56)
[2018-01-21] MEDS ORDERED: SODIUM CHL 0.9% 50ML MIN-BAG+ 50 ML IVPB ONE ×2 (10:12→19:34)
[2018-01-21] MEDS ORDERED: cefTRIAXone SODIUM 1 GM VIAL ONE ×2 (10:12→19:34)
[2018-01-21] MEDS: AZITHROMYCIN 250 MG TAB PO SCH (10:29)
[2018-01-21] MEDS: cefTRIAXone SODIUM 1 GM in SODIUM CHL 0.9% 50ML MIN-BAG+ 50 ML IVPB SCH ×2 (10:29→22:34)
[2018-01-21] MEDS: ALPRAZolam 0.25 MG TAB PO PRN ×2 (11:45→20:54)
[2018-01-21] MEDS ORDERED: KETOROLAC TROMETHAMINE INJ 30 MG/ML VIAL IV ONE (14:19)
[2018-01-21] MEDS: IV SET AND CAP CHANGE INJ INJ SCH (15:50)
[2018-01-21] MEDS: traMADol HCL 50 MG TAB PO PRN (17:47)
[2018-01-21] MEDS ORDERED: APIXABAN 2.5 MG TAB PO ONE (19:32)
[2018-01-21] MEDS: TEMAZEPAM 15 MG CAP PO PRN (20:54)
[2018-01-21] MEDS: APIXABAN 2.5 MG TAB PO SCH (21:20)
--- NOTE | 2018-01-21 22:53 | PN ---
DATE: 01/21/18 SUPERVISING PHYSICIAN: William Valdez M.D. SUBJECTIVE: The patient is sitting in her hospital bed. She has family at the bedside. No complaints of chest pain or shortness of breath. No nausea or vomiting. She does have a headache that has kind of been off and on throughout her stay. We had a long discussion about congestive heart failure and her plan for discharge. Earlier she had complaints of some epigastric tenderness but has tolerated her clear liquids without problems. OBJECTIVE: VITAL SIGNS: She is afebrile, heart rate is 106, blood pressure 115/ 79, respiratory rate 22, O2 sat is 93% on room air. RESPIRATORY: Diminished breath sounds throughout, especially at the bases. CARDIAC: Regular rate, irregular rhythm. GASTROINTESTINAL: Abdomen is soft, nondistended, non-tender. No rebound tenderness or guarding. NEUROLOGIC: She is awake, alert and oriented times three. EXTREMITIES: No cyanosis, clubbing or edema. LABORATORY: WBCs are 8.8, hemoglobin 13.3, hematocrit 40, neutrophils are 88.8% . Chemistries show sodium 142, potassium 4.2, chloride 112, carbon dioxide 25, anion gap 9.2, BUN 18, creatinine 0.82, glucose 197, calcium 8.6. Chest x-ray shows improved aeration of the left mid lung, persistent bilateral interstitial opacities. All other labs and films have been reviewed via the EMR. ASSESSMENT: 1. Exacerbation of congestive heart failure of uncertain etiology, most likely a diastolic/ systolic combination with a new diagnosis per current echocardiogram from last hospitalization approximately a month ago shows an ejection fraction of 30 %. She is now on a beta clifford and an EB inhibitor. 2. Bronchial pneumonia community acquired. 3. Exacerbation of chronic obstructive pulmonary disease presently on azithromycin and Rocephin as well as corticosteroids and breathing treatments. 4. Right upper abdominal pain with findings on CTA of the chest and ultrasound of the abdomen consistent with cholelithiasis. Concerns for acute cholecystitis. Patient currently on Flagyl and Levaquin. 5. Electrolyte imbalance that has improved. 6. History of atrial fibrillation with a pacemaker insertion. The patient was previously on Eliquis 7. Hypertension. 8. Restless leg syndrome. 9. Depression and anxiety. 10. Lupus. PLAN: We will continue present supportive care. I advanced her diet. She will be on a full liquid low fat diet. If she tolerates that, I will advance it to a bland diet tomorrow. I have also started bladder training and will hope to discontinue that Peralta catheter later today. Her Eliquis has been restarted. I will check lab in the morning. 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 She will most likely need to have a cholecystectomy in the near future. Otherwise we will continue to monitor closely and follow as needed. Dr. Valdez is the collaborating physician available for consultation. #[id number] [facility]
[2018-01-22] MEDS ORDERED: metroNIDAZOLE IV PREMIX 500MG 100 ML IVPB ONE ×4 (01:37→22:49)
[2018-01-22] MEDS: metroNIDAZOLE IV PREMIX 500MG 500 MG in PREMIX BAG 1 BAG IVPB SCH ×3 (01:44→17:48)
[2018-01-22] MEDS: PANTOPRAZOLE SODIUM TAB 40 MG PO SCH (06:11)
[2018-01-22] MEDS: ALBUTEROL SULFATE 2.5 MG/3 ML VIAL NEB PRN (06:52)
[2018-01-22] MEDS: ALPRAZolam 0.25 MG TAB PO PRN ×3 (06:55→20:44)
[2018-01-22] MEDS ORDERED: SODIUM CHL 0.9% 50ML MIN-BAG+ 50 ML IVPB ONE ×2 (06:56→19:14)
[2018-01-22] MEDS ORDERED: METOPROLOL TARTRATE 50 MG TAB ONE ×2 (06:57→19:15)
[2018-01-22] MEDS ORDERED: cefTRIAXone SODIUM 1 GM VIAL ONE ×2 (06:58→19:15)
[2018-01-22] MEDS ORDERED: APIXABAN 2.5 MG TAB PO ONE ×2 (06:59→19:14)
[2018-01-22] MEDS: FLUTICASONE/SALMETEROL 250/50 14 PUFF/17 GM INH INH SCH ×2 (08:30→20:45)
[2018-01-22] MEDS: APIXABAN 2.5 MG TAB PO SCH ×2 (08:31→20:44)
[2018-01-22] MEDS: PRAMIPEXOLE 0.25 MG TAB PO SCH ×2 (08:31→20:45)
[2018-01-22] MEDS: LISINOPRIL 5 MG TAB PO SCH (08:31)
[2018-01-22] MEDS: ESTRADIOL TAB 1 MG PO SCH (08:32)
[2018-01-22] MEDS: FLUoxetine HCL 20 MG CAP PO SCH (08:32)
[2018-01-22] MEDS: sulfaSALAzine TAB 500 MG TAB PO SCH ×2 (08:32→20:44)
[2018-01-22] MEDS: METOPROLOL TARTRATE 50 MG TAB PO SCH ×2 (08:32→20:45)
[2018-01-22] MEDS: busPIRone HCL 5 MG TAB PO SCH ×2 (08:32→20:44)
[2018-01-22] MEDS: cefTRIAXone SODIUM 1 GM in SODIUM CHL 0.9% 50ML MIN-BAG+ 50 ML IVPB SCH ×2 (08:33→22:22)
[2018-01-22] MEDS: BUPROPION HCL 75 MG PO SCH (10:39)
[2018-01-22] MEDS: NON-FORMULARY MEDICATION 1 EA MIS (Hydroxychloroquine Sulfate [Plaquenil] 200 MG) PO SCH ×2 (10:41→21:01)
[2018-01-22] MEDS: POTASSIUM CHLORIDE 20 MEQ TAB PO SCH (10:46)
[2018-01-22] MEDS: AZITHROMYCIN 250 MG TAB PO SCH (10:46)
[2018-01-22] MEDS: FUROSEMIDE INJ 40 MG/4 ML VIAL IV SCH (10:46)
[2018-01-22] MEDS: predniSONE 20 MG TAB PO SCH (10:46)
[2018-01-22] MEDS: SODIUM CHLORIDE 0.9% (FLUSH) 10 ML SYG IV SCH ×2 (10:47→21:01)
--- NOTE | 2018-01-22 10:52 | PN ---
DATE: 01/22/18 SUPERVISING PHYSICIAN: William Valdez M.D. SUBJECTIVE: The patient is sitting up in her bed. She has no complaints of chest pain or shortness of breath. No nausea or vomiting. She does feel like she has gained a little bit of weight. She spoke with Dr. Chow this morning and he has released her from his perspective. OBJECTIVE: VITAL SIGNS: She is afebrile, heart rate is 84, blood pressure 113/81, respiratory rate 16. O2 saturation is 96% on 2 liters nasal cannula. I&O: She is positive 130 mLs and has had approximately 2 kg weight gain. RESPIRATORY: A few scattered crackles but without clear to auscultation but slightly diminished at the bases , CARDIAC: Regular rate, irregular rhythm. GASTROINTESTINAL: Abdomen is soft, nondistended, nontender. Bowel sounds are positive. EXTREMITIES: No cyanosis, clubbing, or edema. NEURO: She is awake, alert, and oriented x3. LABORATORY: She has a stable WBC at 8.3, hemoglobin 12.4, hematocrit 37.8, neutrophils are 62%. Electrolytes are basically within normal limits. All other labs and films have been reviewed via the EMR. ASSESSMENT: 1. Exacerbation of congestive heart failure of uncertain etiology, most likely a diastolic/ systolic combination with a new diagnosis per current echocardiogram from last hospitalization approximately a month ago shows an ejection fraction of 30 %. She is now on a beta clifford and an EB inhibitor. 2. Bronchial pneumonia community acquired. 3. Exacerbation of chronic obstructive pulmonary disease presently on azithromycin and Rocephin as well as corticosteroids and breathing treatments. 4. Right upper abdominal pain with findings on CTA of the chest and ultrasound of the abdomen consistent with cholelithiasis. Concerns for acute cholecystitis. Patient currently on Flagyl and Levaquin. Dr. Chow has released her from his perspective. 5. Electrolyte imbalance that has improved. 6. History of atrial fibrillation with a pacemaker insertion. The patient was previously on Eliquis 7. Hypertension. 8. Restless leg syndrome. 9. Depression and anxiety. 10. Lupus. PLAN: We will continue present supportive care. Dr. Chow signed off on her as for now. Her daughter is coming today to assist her back to [place], [place] and will need to get in touch with Dr. Rowland for office, her primary care physician, at discharge for very close followup. I have adjusted her Lasix today and she has gained some weight. Will monitor her I&O overnight. Will continue her present antibiotics as ordered. I have also added some potassium to her medications. Her Peralta catheter is out and she is doing well with that. She is off her IV steroids and has now received her first dose of oral steroids so she will need a taper when she is discharged. I have also ordered some repeat lab for in the morning. Hopefully , she can be discharged tomorrow, she stabilizes on her medications and will continue to monitor closely and follow as needed. Dr. Valdez is the collaborating physician available for consultation. #[id number] [facility]
[2018-01-22] MEDS: LEVALBUTEROL NEBS 1.25 MG/3 ML VIAL NEB SCH ×2 (10:55→16:30)
[2018-01-22] MEDS: traMADol HCL 50 MG TAB PO PRN (16:53)
[2018-01-22] MEDS: TEMAZEPAM 15 MG CAP PO PRN (20:45)
[2018-01-23] MEDS: LEVALBUTEROL NEBS 1.25 MG/3 ML VIAL NEB SCH ×2 (00:10→08:46)
[2018-01-23] MEDS: metroNIDAZOLE IV PREMIX 500MG 500 MG in PREMIX BAG 1 BAG IVPB SCH ×2 (01:03→10:07)
[2018-01-23 05:35] VITALS: TEMP 98.3; O2SAT 98
[2018-01-23] MEDS: PANTOPRAZOLE SODIUM TAB 40 MG PO SCH (06:11)
[2018-01-23] MEDS ORDERED: metroNIDAZOLE IV PREMIX 500MG 100 ML IVPB ONE (08:26)
[2018-01-23] MEDS ORDERED: APIXABAN 2.5 MG TAB PO ONE (08:29)
[2018-01-23] MEDS: busPIRone HCL 5 MG TAB PO SCH (08:42)
[2018-01-23] MEDS: APIXABAN 2.5 MG TAB PO SCH (08:42)
[2018-01-23] MEDS: PRAMIPEXOLE 0.25 MG TAB PO SCH (08:42)
[2018-01-23] MEDS: sulfaSALAzine TAB 500 MG TAB PO SCH (08:42)
[2018-01-23] MEDS: POTASSIUM CHLORIDE 20 MEQ TAB PO SCH (08:42)
[2018-01-23] MEDS: ESTRADIOL TAB 1 MG PO SCH (08:43)
[2018-01-23] MEDS: predniSONE 20 MG TAB PO SCH (08:43)
[2018-01-23] MEDS: LISINOPRIL 5 MG TAB PO SCH (08:44)
[2018-01-23] MEDS: FLUoxetine HCL 20 MG CAP PO SCH (08:44)
[2018-01-23] MEDS: SODIUM CHLORIDE 0.9% (FLUSH) 10 ML SYG IV SCH (08:45)
[2018-01-23] MEDS: FLUTICASONE/SALMETEROL 250/50 14 PUFF/17 GM INH INH SCH (08:46)
[2018-01-23] MEDS ORDERED: POTASSIUM CHLORIDE 20 MEQ TAB PO ONE (09:04)
[2018-01-23] MEDS ORDERED: NYSTATIN SUSPENSION 5 ML UD MT ONE (09:44)
[2018-01-23] MEDS ORDERED: METOPROLOL TARTRATE 50 MG TAB ONE (09:51)
[2018-01-23] MEDS: traMADol HCL 50 MG TAB PO PRN (09:58)
[2018-01-23] MEDS: METOPROLOL TARTRATE 50 MG TAB PO SCH (09:58)
[2018-01-23] MEDS: FUROSEMIDE INJ 40 MG/4 ML VIAL IV SCH (09:59)
[2018-01-23] MEDS: ALPRAZolam 0.25 MG TAB PO PRN (09:59)
[2018-01-23] MEDS: SODIUM CHLORIDE 0.9% (FLUSH) 10 ML SYG IV PRN (09:59)
[2018-01-23] MEDS ORDERED: BIFIDOBACTERIUM INFANTIS 4 MG CAP PO SCH (10:00)
[2018-01-23] MEDS: NON-FORMULARY MEDICATION 1 EA MIS (Hydroxychloroquine Sulfate [Plaquenil] 200 MG) PO SCH (10:22)
[2018-01-23] MEDS: BUPROPION HCL 75 MG PO SCH (10:22)
[2018-01-23] MEDS ORDERED: PNEUMOCOCCAL VACCINE 0.5 ML INJ ONE ×2 (12:23→13:06)
[2018-01-23] MEDS: AZITHROMYCIN 250 MG TAB PO SCH (12:33)
[2018-01-23] MEDS: cefTRIAXone SODIUM 1 GM in SODIUM CHL 0.9% 50ML MIN-BAG+ 50 ML IVPB SCH (12:36)
[2018-01-23] MEDS: ALBUTEROL SULFATE 2.5 MG/3 ML VIAL NEB PRN (13:01)
[2018-01-23] MEDS ORDERED: NON-FORMULARY MEDICATION 1 EA MIS IM ONE (13:30)
[2018-01-23 14:00] VITALS: BP 125/79
--- NOTE | 2018-01-29 10:37 | DS ---
SUPERVISING PHYSICIAN: William Valdez MD DISCHARGE DIAGNOSES: 1. Exacerbation of congestive heart failure of uncertain etiology, most likely a diastolic/ systolic combination with a new diagnosis per current echocardiogram from last hospitalization approximately a month ago shows an ejection fraction of 30 %. She is now on a beta clifford and an BLAKE inhibitor. 2. Bronchial pneumonia community acquired. 3. Exacerbation of chronic obstructive pulmonary disease presently on azithromycin and Rocephin as well as corticosteroids and breathing treatments. 4. Right upper abdominal pain with findings on CTA of the chest and ultrasound of the abdomen consistent with cholelithiasis. Concerns for acute cholecystitis. Patient currently on Flagyl and Levaquin. Dr. Chow has released her from his perspective. 5. Electrolyte imbalance that has improved. 6. History of atrial fibrillation with a pacemaker insertion. The patient was previously on Eliquis 7. Hypertension. 8. Restless leg syndrome. 9. Depression and anxiety. 10. Lupus. . HISTORY OF PRESENT ILLNESS: This is a 62-year-old female patient with a history of atrial fibrillation who came into the Emergency Room with shortness of breath that started Wednesday prior to admission. She is from [place] and was visiting family here in [place]. She had a sharp pressure-like pain in her chest. There is no diaphoresis, no nausea and vomiting. She has a history of pacemaker insertion for atrial fibrillation about 2 to 3 years ago and was diagnosed with heart failure approximately one month ago and was in ICU in [place], [place]. She also has a history of asthma, chronic obstructive pulmonary disease, rheumatoid arthritis. When she presented to the Emergency Room, she had a heart rate in the low 100s. It did go as high as 124. Her initial workup included lab with a sodium 140, potassium 3.3, chloride 105, carbon dioxide 25, BUN 13, creatinine 0.77, glucose 145, magnesium 1.4. ALT 68. Cardiac enzymes were negative. BNP was 1200. Urinalysis was basically within normal limits with the exception of a trace amount of urine blood. Chest x-ray showed interstitial densities that could represent bronchitis and/ or pulmonary edema with asymmetric movement in the upper lobes, more on the left. She was given some magnesium and some Diltiazem. Her heart rate came down to around 100. Breathing treatments were also administered. She was given some Solu-Medrol IV and some nitroglycerin. She was admitted to the hospital for exacerbation of congestive heart failure. HOSPITAL COURSE: She was diuresed over the next day or two but her CTA of the chest to rule out a pulmonary embolism was done. She had a CTA done because she had been off her Eliquis for several days and the CTA was suspicious for acute cholecystitis. An ultrasound of the gallbladder revealed a thickened gallbladder wall and gallstones and Dr. Chow was consulted for treatment and further workup. She was placed on bowel rest and fluids for her exacerbation of chronic obstructive pulmonary disease and her bronchitis. She was given azithromycin and Ceftriaxone. Her echocardiogram was requested from the hospital in [place] and it was revealed that her echocardiogram from about one to two months revealed an ejection fraction of 30% with significant diastolic and systolic dysfunction. She had not been taking her lisinopril so the blake inhibitor was restarted. She had been on beta clifford and that was resumed during her stay. Her Eliquis was also restarted. She was diuresed significantly and her abdominal pain resolved. Dr. Chow advanced her diet. She tolerated it well and she will be discharged home today in stable condition. LABORATORY: Her WBCs stabilized to 7.4, they had gone as high as 12.1. Hemoglobin and hematocrit were stable at 12.8 and 39. She did have a low potassium this morning but it was replaced with 40 mEq p.o. potassium chloride. Her BUN and creatinine are stable at 17 and 0.79. RADIOLOGY: Chest CTA showed no evidence of acute or chronic pulmonary embolism but cholelithiasis with inflammatory stranding surrounding the gallbladder that is consistent with acute cholecystitis. Abdominal ultrasound revealed gallstone in contracted gallbladder. Her chest x-ray today showed improved aeration with the left midlung with persistent bilateral interstitial opacities. DISCHARGE PLAN: The patient will be discharged home in stable condition. 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 She will also need to be referred to a surgeon for a possible cholecystectomy in the near future. She was given extensive congestive heart failure education. The patient is to return to the hospital or call her primary care physician or furniture upholsterer apprentice for any further problems or complications. DISCHARGE MEDICATIONS: 1. Albuterol sulfate. 2. Advair. 3. Azulfidine. 4. Diclofenac topical. 5. Mirapex. 6. Nexium. 7. Meloxicam. 8. Plaquenil. 9. Fluoxetine. 10. Estradiol. 11. Hydroxyzine. 12. Alprazolam. 13. Azithromycin. 14. Cefdinir. 15. Furosemide. 16. Metronidazole. 17. Potassium chloride. 18. Align. 19. Nystatin. 20. Prednisone taper. 21. Nystatin suspension. 22. Metoprolol tartrate. 23. Tramadol. 24. Lisinopril. 25. Eliquis. 26. Bupropion. 27. BuSpar. 28. Doxepin. #[id number] [facility]
== END 2018-01-23 13:40 | disposition home or self-care (01) | DRG 291 ==
LOC: ER 07:50 → MS 11:51 → OBSVTOIN 11:51
PROVIDERS: ADMIT Nurse Practitioner Acute Care; ATTEND Surgery
DX: I11.0 Hypertensive heart disease with heart failure (principal); J18.0 Bronchopneumonia, unspecified organism; J44.0 Chronic obstructive pulmonary disease with (acute) lower respiratory infection; J44.1 Chronic obstructive pulmonary disease with (acute) exacerbation; K80.00 Calculus of gallbladder with acute cholecystitis without obstruction; I50.41 Acute combined systolic (congestive) and diastolic (congestive) heart failure; I48.91 Unspecified atrial fibrillation; E83.42 Hypomagnesemia; G25.81 Restless legs syndrome; F32.9 Major depressive disorder, single episode, unspecified; F41.9 Anxiety disorder, unspecified; M32.9 Systemic lupus erythematosus, unspecified; M06.9 Rheumatoid arthritis, unspecified; E87.6 Hypokalemia; I25.10 Atherosclerotic heart disease of native coronary artery without angina pectoris; Z87.891 Personal history of nicotine dependence; Z79.01 Long term (current) use of anticoagulants; Z95.0 Presence of cardiac pacemaker